=== PATIENT | male | born 1990 | race Two or more races ===

== ENCOUNTER 2016-11-28 14:11 | Emergency (ER) | payer OTHER ==
[2016-11-28 14:18] VITALS: BMI 27.6
[2016-11-28 14:42] VITALS: BP 122/81; PULSE 72; TEMP 99.1
--- NOTE | 2016-11-28 14:47 | PDOC ---
History of Present Illness - General History Source: Patient Exam Limitations: No Limitations - History of Present Illness Initial Comments: 11/28/16 15:00 The patient is a 26 year old male, with a significant past medical history of temporomandibular joint dysfunction and gastroesophageal reflux disease, who presents to the emergency room complaining of sore throat, stuffy nose, and dry cough beginning approx. 5 days ago and subjective fever, diaphoresis and chills beginning last night. The patient reports he has been feeling progressively worse throughout the week and reports difficulty sleeping last night secondary to the chills and diaphoresis. The patient reports associated symptoms of body aches and abdominal pain. He denies any recent nausea, vomit, diarrhea or constipation. He denies any recent chest pain or shortness of breath. He denies any recent dysuria, frequency, urgency or hematuria. PCP: Dr. Yves Varghese Allergies: NKA Past surgical history: None reported. <Sarmad Greenwood - Last Filed: 11/28/16 16:30> <Jovanna Shankar - Last Filed: 11/29/16 09:40> - General Chief Complaint: Cold Symptoms Stated Complaint: COLD Time Seen by Provider: 11/28/16 14:32 Past History <Sarmad Greenwood - Last Filed: 11/28/16 16:30> - Past Medical History Other medical history: GERD - Suicide/Smoking/Psychosocial Hx Smoking History: Never smoked Hx Alcohol Use: Yes Drug/Substance Use Hx: No Substance Use Type: Alcohol <Jovanna Shankar - Last Filed: 11/29/16 09:40> - Past Medical History Allergies/Adverse Reactions: Allergies Allergy/AdvReac Type Severity Reaction Status Date / Time No Known Allergies Allergy Verified 11/28/16 14:11 Home Medications: Ambulatory Orders Cetirizine HCl [Zyrtec -] 10 mg PO DAILY 11/28/16 Fluticasone Prop 0.05% Nasal [Flonase -] 1 spray NS DAILY 11/28/16 Omeprazole 40 mg PO DAILY 11/28/16 Review of Systems - Review of Systems Comments:: 11/28/16 15:00 GENERAL/CONSTITUTIONAL: +Subjective fever. +Chills. HEAD, EYES, EARS, NOSE AND THROAT: +Sore throat. No change in vision. No ear pain or discharge. CARDIOVASCULAR: No chest pain or shortness of breath. RESPIRATORY: +Dry cough. No wheezing, or hemoptysis. GASTROINTESTINAL: No nausea, vomiting, diarrhea or constipation. GENITOURINARY: No dysuria, frequency, or change in urination. MUSCULOSKELETAL: +Diffuse body aches. No neck or back pain. SKIN: No rash NEUROLOGIC: No headache, vertigo, loss of consciousness, or change in strength/ sensation. ENDOCRINE: No increased thirst. No abnormal weight change. HEMATOLOGIC/LYMPHATIC: No anemia, easy bleeding, or history of blood clots. ALLERGIC/IMMUNOLOGIC: No hives or skin allergy. <Sarmad Greenwood - Last Filed: 11/28/16 16:30> *Physical Exam - Vital Signs Last Vital Signs Temp Pulse Resp BP Pulse Ox 99.1 F 72 18 122/81 100 11/28/16 14:11 11/28/16 14:11 11/28/16 14:11 11/28/16 14:11 11/28/16 14:11 <Sarmad Greenwood - Last Filed: 11/28/16 16:30> - Vital Signs Last Vital Signs Temp Pulse Resp BP Pulse Ox 99.1 F 72 18 122/81 100 11/28/16 14:11 11/28/16 14:11 11/28/16 14:11 11/28/16 14:11 11/28/16 14:11 - Physical Exam Comments: GENERAL: Awake, alert, and fully oriented, in no acute distress HEAD: No signs of trauma EYES: PERRLA, EOMI, sclera anicteric, conjunctiva clear ENT: Auricles normal inspection, hearing grossly normal, nares patent with boggy turbinates B/L, oropharynx erythematous without exudates. Moist mucosa NECK: Normal ROM, supple. +Anterior cervical lymphadenopathy. No JVD or masses LUNGS: Breath sounds equal, clear to auscultation bilaterally. No wheezes, and no crackles HEART: Regular rate and rhythm, normal S1 and S2, no murmurs, rubs or gallops ABDOMEN: Soft, nontender, normoactive bowel sounds. No guarding, no rebound. No masses EXTREMITIES: Normal range of motion, no edema. No clubbing or cyanosis. No cords , erythema, or tenderness NEUROLOGICAL: Cranial nerves II through XII grossly intact. Normal speech, normal gait SKIN: Warm, Dry, normal turgor, no rashes or lesions noted. <Jovanna Shankar - Last Filed: 11/29/16 09:40> ED Treatment Course - RADIOLOGY Radiograph Interpretation: 11/28/16 16:30 #: TYPE/EXAM: RESULT: [id number] RAD/CHEST PA LAT Clinical information: Rule out pneumonia. Chest x ray, PA and Lateral Comparison: No prior is available for comparison The cardiac silhouette is within normal limits in size. The lung is clear. Mediastinum and visualized osseous structures appear grossly intact . Mild elevation of the right hemidiaphragm. Impression Unremarkable examination without evidence of acute lung disease. Reported By: Adal Little MD 11/28/16 1554 <Sarmad Greenwood - Last Filed: 11/28/16 16:30> Medical Decision Making - Medical Decision Making XR and lab results d/w patient. Suspect viral URI. Symptomatic treatment. Stable for DC home. <Jovanna Shankar - Last Filed: 11/29/16 09:40> *DC/Admit/Observation/Transfer - Attestations Scribe Attestion: 11/28/16 15:02 Documentation prepared by Sarmad Greenwood, acting as certified medical coding specialist for Jovanna Shankar MD. <Sarmad Greenwood - Last Filed: 11/28/16 16:30> - Discharge Dispostion Admit: No <Jovanna Shankar - Last Filed: 11/29/16 09:40> Diagnosis at time of Disposition: Viral upper respiratory illness - Discharge Dispostion Disposition: HOME Condition at time of disposition: Stable - Patient Instructions Printed Discharge Instructions: DI for Viral Upper Respiratory Infection -- Adult - Post Discharge Activity Forms/Work/School Notes: Back to Work
[2016-11-28 17:11] LABS: HIV 1 & 2 AB NEGATIVE; HIV 1 AGp24 NEGATIVE
== END 2016-11-28 17:04 | disposition home or self-care (01) ==
LOC: FER 14:11
DX: J06.9 Acute upper respiratory infection, unspecified (principal); K21.9 Gastro-esophageal reflux disease without esophagitis
CPT/HCPCS: 36415; 71020-TC; 87070; 87389; 87430; 87804; 99282-25